=== PATIENT | male | born 1975 | race Caucasian/White ===

== ENCOUNTER 2024-03-26 18:52 | Outpatient (REF) | payer OTHER, SELFPAY ==
--- NOTE | ~2024-03-26 | MR_ITS ---
EXAMINATION: MR HAND WITHOUT CONTRAST, RIGHT CLINICAL INFORMATION: Crush injury. Prior tumor resection. COMPARISON: None available. TECHNIQUE: Multisequence MR imaging of the right hand was obtained without contrast on a high-field strength scanner. FINDINGS: BONE: No marrow edema or evidence of acute osseous injury. No fracture or dislocation. No concerning lytic or blastic osseous lesion. Mild articular cartilage thinning with tiny marginal osteophytes at the first metacarpophalangeal joint. MUSCLES/TENDONS: Trace fluid within the flexor pollicis longus tendon sheath consistent with minimal tenosynovitis. No transverse tendon tear or tendon retraction. LIGAMENTS: Heterogeneity of the first metacarpophalangeal ulnar collateral ligament which could represent a grade 1 sprain/partial tear versus sequela of a remote ligament injury. No full-thickness ligament tear or retraction. No interposition of the adductor aponeurosis to suggest a Stener lesion. SOFT TISSUES: No soft tissue mass or fluid collection. Partially visualized small second metacarpophalangeal joint effusion. MR/MR hand RT wo con IMPRESSION: 1. Heterogeneity of the first metacarpophalangeal ulnar collateral ligament which could represent a grade 1 sprain/partial tear versus sequela of a remote ligament injury. No full-thickness ligament tear or retraction. No interposition of the adductor aponeurosis to suggest a Stener lesion. 2. Minimal flexor pollicis longus tenosynovitis. No transverse tendon tear or tendon retraction. 3. 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
== END 2024-03-26 18:53 | disposition home or self-care (01) ==
LOC: HO.MRI 18:52
PROVIDERS: Visit Provider Family Medicine
DX: S67.01XD Crushing injury of right thumb, subsequent encounter (principal)
CPT/HCPCS: 73218